=== PATIENT | female | born 1955 | race Asian ===

== ENCOUNTER 2025-07-28 16:09 | Inpatient (IN) | payer MEDICARE ==
[2025-07-28] VITALS (9 sets, daily range): BP systolic 69–109; BP diastolic 55–80; TEMP 97.6; O2SAT 97–99
[~2025-07-28] VITALS: Ht 157.5 cm; Wt 59.0 kg
[2025-07-28] MEDS: IV NORMAL SALINE 1000 ML BAG IV ONE ×2 (16:41→20:05)
[2025-07-28] MEDS ORDERED: diphenhydrAMINE 50 MG/1 ML VIAL ONE (16:43)
[2025-07-28] MEDS ORDERED: DEXAMETHASONE SOD PHOSPHATE 10 MG INJ ONE (16:43)
[2025-07-28] MEDS ORDERED: LORAZEPAM 2 MG/1 ML VIAL ONE (16:43)
[2025-07-28 16:44] LABS: PLATELET COUNT (AUTO) 296 K/uL (179-408); RED BLOOD CELL COUNT(AUTO) 4.93 MIL/uL (3.63-4.92); RED CELL DISTRIBUTION WIDTH 13.8 % (12.3-17.7); WHITE BLOOD COUNT (AUTO) 13.0 K/uL (3.8-11.8)
[2025-07-28] MEDS: diphenhydrAMINE 50 MG/1 ML VIAL IV ONE (16:45)
[2025-07-28] MEDS: DEXAMETHASONE SOD PHOSPHATE 4 MG INJ IV ONE (16:45)
[2025-07-28] MEDS ORDERED: LORAZEPAM 2 MG/1 ML VIAL IV ONE (16:45)
[2025-07-28] MEDS ORDERED: METOCLOPRAMIDE HCL 10 MG/2 ML VIAL ONE (16:49)
[2025-07-28] MEDS: METOCLOPRAMIDE HCL 10 MG/2 ML VIAL IV ONE (16:50)
[2025-07-28 16:53] LABS: CREATININE 0.9 mg/dL (0.6-1.3); SODIUM SERUM 139 mmol/L (136-145); UREA NITROGEN, BLOOD 24 mg/dL (7-18)
[2025-07-28 16:55] LABS: ABG BASE EXCESS -4.8 mmol/L (-2.0-3.0); ABG HCO3 17.6 mmol/L (21.0-28.0); ABG PCO2 26.6 mmHg (32.0-45.0); ABG PH 7.438 (7.350-7.450); ABG PO2 73.7 mmHg (83.0-108.0); ABG SITE LEFT RADIAL; ABG TOTAL HEMOGLOBIN 15.3 G/dL (12.0-16.0); AaDO2 95.5 mmHg; FIO2 21.0 %; FLOW, BLOOD GAS 0.00 L/min (0.00-30.00)
[2025-07-28 16:59] LABS: ASPARTATE AMINOTRANSFERASE 9 U/L (15-37); TOTAL PROTEIN, SERUM 9.1 g/dL (6.4-8.2)
[2025-07-28] MEDS ORDERED: PROPOFOL 100 ML ONE (17:02)
[2025-07-28] MEDS: ETOMIDATE 20 MG/10 ML VIAL IV ONE ×2 (17:03→17:23)
[2025-07-28 17:08] LABS: LACTIC ACID 4.2 mmol/L (0.4-2.0)
[2025-07-28] MEDS: SUCCINYLCHOLINE CHLORIDE 200 MG/10 ML VIAL IV ONE (17:35)
[2025-07-28] MEDS: PROPOFOL 200 MG/20 ML BOTTLE IV ONE (18:00)
[2025-07-28] MEDS: PROPOFOL 100 ML IV PRN (18:10)
[2025-07-28] MEDS ORDERED: REMEDY ESSENTIAL ZINC PASTE 113 GM TP PRN (18:15)
[2025-07-28] MEDS ORDERED: ONDANSETRON 4 MG/2 ML VIAL IV PRN (18:15)
[2025-07-28] MEDS ORDERED: MAGNESIUM HYDROXIDE 30 ML LIQUID UDC PO PRN (18:15)
[2025-07-28] MEDS ORDERED: NATE60TA4 PO (18:21)
[2025-07-28] MEDS ORDERED: LOSA50TA39 PO (18:21)
[2025-07-28] MEDS ORDERED: SITA100T PO (18:21)
[2025-07-28] MEDS ORDERED: AMLO-212 PO (18:21)
[2025-07-28] MEDS ORDERED: ATOR10TA PO (18:21)
[2025-07-28] MEDS ORDERED: BENZ-38 PO (18:21)
[2025-07-28] MEDS ORDERED: SUCCINYLCHOLINE CHLORIDE 200 MG/10 ML VIAL ONE (18:30)
[2025-07-28] MEDS ORDERED: ROCURONIUM BROMIDE 100 MG in IV NORMAL SALINE 90 ML IV PRN (18:30)
[2025-07-28] MEDS ORDERED: ROCURONIUM BROMIDE 50 MG/5 ML VIAL ONE ×2 (18:30)
[2025-07-28] MEDS ORDERED: ETOMIDATE 20 MG/10 ML VIAL ONE (18:30)
[2025-07-28] MEDS ORDERED: VECURONIUM BROMIDE 10 MG VIAL ONE (18:30)
[2025-07-28] MEDS ORDERED: ACETAMINOPHEN 650 MG SUPP.RECT RC ONE (18:34)
[2025-07-28] MEDS: ACETAMINOPHEN 650 MG SUPP.RECT RC ONE (18:44)
[2025-07-28] MEDS: VANCOMYCIN IV 1,000 MG in IV DEXTROSE 5% 250 ML IV ONE (18:45)
[2025-07-28] MEDS ORDERED: LABETALOL HCL 100 MG/20 ML VIAL ONE (18:46)
[2025-07-28] MEDS: LABETALOL HCL 100 MG/20 ML VIAL IV ONE (18:49)
[2025-07-28] MEDS ORDERED: CEFTRIAXONE /D5W 50ML IVPB **ER PYXIS IV ONE (18:50)
[2025-07-28 19:06] LABS: *BILIRUBIN,URIN NEGATIVE (NEGATIVE); *BLOOD, URINE 3+ (NEGATIVE); *COLOR,URINE YELLOW (YELLOW); *KETONES,URINE 1+ (NEGATIVE); *PROTEIN,URINE NEGATIVE (NEGATIVE); *UROBILINOGEN,URINE 0.2 E.U./dl (NORMAL); LEUKOCYTE ESTERASE ,URINE NEGATIVE (NEGATIVE); NITRITE, URINE NEGATIVE (NEGATIVE)
[2025-07-28 19:08] LABS: UGLUCOSE 3+ (NEGATIVE)
[2025-07-28 19:20] LABS: SQUAMOUS EPITHELIAL CELL,UR FEW /HPF (NONE SEEN)
[2025-07-28 19:22] LABS: *CLARITY,URINE SLIGHTLY HAZY (CLEAR)
[2025-07-28] MEDS ORDERED: VANCOMYCIN IV 0 ML ONE (20:35)
[2025-07-28] MEDS ORDERED: AZITHROMYCIN 500MG/ D5W 250ML IVPB **ER PYXIS ONLY IV ONE (20:35)
[2025-07-28] MEDS: AZITHROMYCIN IV 500 MG in IV DEXTROSE 5% 250 ML IV SCH (20:40)
[2025-07-28] MEDS ORDERED: NOREPINEPHRINE 8MG/NS 250ML 250 ML IV ONE (21:02)
[2025-07-28 21:04] LABS: ABG BASE EXCESS -9.9 mmol/L (-2.0-3.0); ABG HCO3 15.9 mmol/L (21.0-28.0); ABG PCO2 34.3 mmHg (32.0-45.0); ABG PH 7.283 (7.350-7.450); ABG PO2 167.0 mmHg (83.0-108.0); ABG SITE RIGHT HEEL; ABG TOTAL HEMOGLOBIN 11.4 G/dL (12.0-16.0); AaDO2 98.9 mmHg; FIO2 100.0 %; PEEP,BG 5.0 cmH20; SET RATE, BG 20.0; VT, ABG 400 mL
[2025-07-28] MEDS: NOREPINEPHRINE 8MG/NS 250ML 250 ML IV PRN (21:31)
[2025-07-28] MEDS: IV NS 1000 ML 1,000 ML IV PRN (22:24)
[2025-07-28] MEDS ORDERED: CEFEPIME HCL 1 G VIAL ONE (23:08)
[2025-07-28] MEDS ORDERED: ACYCLOVIR 500 MG VIAL IV ONE (23:08)
[2025-07-28] MEDS: ENOXAPARIN SODIUM 40 MG/0.4 ML DISP.SYRIN SQ SCH (23:41)
[2025-07-28] MEDS: ACYCLOVIR IV 500 MG in IV DEXTROSE 5% 100 ML IV ONE (23:43)
[2025-07-28] MEDS: DEXAMETHASONE SOD PHOSPHATE 4 MG INJ IV SCH (23:58)
[2025-07-29] VITALS (95 sets, daily range): BP systolic 95–136; BP diastolic 57–87; TEMP 97.8–98.2; O2SAT 96–100
[2025-07-29] MEDS: CEFEPIME (MAXEPIME) 1 G in IV DEXTROSE 5% 50 ML IV SCH ×2 (00:44→08:42)
[2025-07-29] MEDS: PROPOFOL 100 ML IV PRN (03:17)
[2025-07-29 05:05] LABS: RED CELL DISTRIBUTION WIDTH 13.9 % (12.3-17.7)
[2025-07-29 05:06] LABS: PLATELET COUNT (AUTO) 271 K/uL (179-408); RED BLOOD CELL COUNT(AUTO) 4.39 MIL/uL (3.63-4.92)
[2025-07-29 05:21] LABS: WHITE BLOOD COUNT (AUTO) 37.4 K/uL (3.8-11.8)
[2025-07-29 05:23] LABS: CREATININE 0.6 mg/dL (0.6-1.3); UREA NITROGEN, BLOOD 16 mg/dL (7-18)
[2025-07-29 05:29] LABS: SODIUM SERUM 143 mmol/L (136-145)
[2025-07-29] MEDS ORDERED: CEFEPIME (MAXEPIME) 1 G in IV DEXTROSE 5% 50 ML IV SCH ×2 (06:00→08:30)
[2025-07-29 06:10] LABS: BAND % (MANUAL) 12 % (0-10); LYMPHOCYTES % (MANUAL) 4 % (20-40); MONOCYTES % (MANUAL) 6 % (2-10); MYELOCYTES % 1 % (0-0); NEUTROPHILS % (MANUAL) 77 % (42-75); PLATELET ESTIMATE ADEQUATE
[2025-07-29] MEDS: NOREPINEPHRINE 8MG/NS 250ML 250 ML IV PRN (06:27)
[2025-07-29] MEDS ORDERED: ACYCLOVIR IV 500 MG in IV DEXTROSE 5% 100 ML IV SCH (07:30)
[2025-07-29] MEDS: POTASSIUM CHLORIDE 50 ML IV SCH (08:42)
[2025-07-29] MEDS: PANTOPRAZOLE SODIUM 40 MG VIAL IV SCH (09:20)
[2025-07-29] MEDS: ACYCLOVIR IV 500 MG in IV DEXTROSE 5% 100 ML IV SCH (09:21)
[2025-07-29] MEDS ORDERED: DEXTROSE 50% 50 ML DISP.SYRIN IV PRN (09:45)
[2025-07-29] MEDS ORDERED: IV NORMAL SALINE 250 ML IV ONE (11:24)
[2025-07-29] MEDS ORDERED: IOHEXOL 300MG/ML 100 ML INFUS..BTL ONE (11:24)
[2025-07-29] MEDS ORDERED: SWABABLE VALVE TRANSFER SET EA MC ONE (11:24)
[2025-07-29] MEDS: BLOOD SUGAR DIAGNOSTIC 1 EACH STRIP VI SCH (11:42)
[2025-07-29] MEDS: INSULIN REGULAR, HUMAN 1000 UNIT/10 ML VIAL SQ PRN (11:54)
[2025-07-29] MEDS: SODIUM BICARBONATE 8.4% 50 MEQ in IV 1/2NS 1000 ML 1,000 ML IV PRN (11:56)
[2025-07-29] MEDS ORDERED: AZITHROMYCIN IV 500 MG in IV DEXTROSE 5% 250 ML IV SCH (20:00)
[2025-07-30] VITALS (81 sets, daily range): BP systolic 96–133; BP diastolic 61–81; TEMP 97.9–98.2; O2SAT 97–99
[2025-07-30 03:55] LABS: PLATELET COUNT (AUTO) 213 K/uL (179-408); RED BLOOD CELL COUNT(AUTO) 3.98 MIL/uL (3.63-4.92); RED CELL DISTRIBUTION WIDTH 14.1 % (12.3-17.7)
[2025-07-30 04:10] LABS: WHITE BLOOD COUNT (AUTO) 38.8 K/uL (3.8-11.8)
[2025-07-30 04:11] LABS: CREATININE 0.6 mg/dL (0.6-1.3); SODIUM SERUM 146 mmol/L (136-145); TOTAL PROTEIN, SERUM 6.6 g/dL (6.4-8.2); UREA NITROGEN, BLOOD 19 mg/dL (7-18)
[2025-07-30 04:40] LABS: BAND % (MANUAL) 8 % (0-10); LYMPHOCYTES % (MANUAL) 5 % (20-40); METAMYELOCYTES % 1 % (0-1); MONOCYTES % (MANUAL) 5 % (2-10); NEUTROPHILS % (MANUAL) 81 % (42-75); PLATELET ESTIMATE ADEQUATE
[2025-07-30 05:45] LABS: ASPARTATE AMINOTRANSFERASE 49 U/L (15-37)
[2025-07-30] MEDS ORDERED: SODIUM BICARBONATE 8.4% 50 MEQ in IV 1/2NS 1000 ML 1,000 ML IV PRN (07:45)
[2025-07-30] MEDS: SODIUM BICARBONATE 8.4% 100 MEQ in IV 1/2NS 1000 ML 1,000 ML IV PRN (08:23)
[2025-07-30] MEDS: MIDAZOLAM HCL 50 MG in IV NORMAL SALINE 40 ML IV PRN (11:29)
[2025-07-30 20:18] LABS: CREATININE 0.6 mg/dL (0.6-1.3); SODIUM SERUM 148 mmol/L (136-145); UREA NITROGEN, BLOOD 21 mg/dL (7-18)
[2025-07-31] VITALS (81 sets, daily range): BP systolic 98–269; BP diastolic 62–87; TEMP 97.2–98.6; O2SAT 96–100
[2025-07-31 05:27] LABS: PLATELET COUNT (AUTO) 171 K/uL (179-408); RED BLOOD CELL COUNT(AUTO) 4.19 MIL/uL (3.63-4.92); RED CELL DISTRIBUTION WIDTH 14.5 % (12.3-17.7)
[2025-07-31 05:38] LABS: ABG BASE EXCESS -13.7 mmol/L (-2.0-3.0); ABG HCO3 12.2 mmol/L (21.0-28.0); ABG PCO2 28.9 mmHg (32.0-45.0); ABG PH 7.243 (7.350-7.450); ABG PO2 103.1 mmHg (83.0-108.0); ABG SITE RIGHT RADIAL; ABG TOTAL HEMOGLOBIN 12.2 G/dL (12.0-16.0); AaDO2 96.9 mmHg; FIO2 30.0 %; PEEP,BG 5.0 cmH20; SET RATE, BG 20.0; VT, ABG 400 mL
[2025-07-31 05:38] LABS: ABG BASE EXCESS -16.6 mmol/L (-2.0-3.0); ABG HCO3 10.9 mmol/L (21.0-28.0); ABG PCO2 31.4 mmHg (32.0-45.0); ABG PH 7.157 (7.350-7.450); ABG PO2 151.3 mmHg (83.0-108.0); ABG SITE LEFT RADIAL; ABG TOTAL HEMOGLOBIN 13.1 G/dL (12.0-16.0); AaDO2 98.4 mmHg; FIO2 60.0 %; PEEP,BG 5.0 cmH20; SET RATE, BG 20.0; VT, ABG 400 mL
[2025-07-31 05:40] LABS: ASPARTATE AMINOTRANSFERASE 28 U/L (15-37); CREATININE 0.7 mg/dL (0.6-1.3); SODIUM SERUM 149 mmol/L (136-145); TOTAL PROTEIN, SERUM 6.7 g/dL (6.4-8.2); UREA NITROGEN, BLOOD 23 mg/dL (7-18); WHITE BLOOD COUNT (AUTO) 34.4 K/uL (3.8-11.8)
[2025-07-31 05:57] LABS: BAND % (MANUAL) 5 % (0-10); LYMPHOCYTES % (MANUAL) 7 % (20-40); MONOCYTES % (MANUAL) 3 % (2-10); NEUTROPHILS % (MANUAL) 85 % (42-75); PLATELET ESTIMATE SLIGHT DECREASED
[2025-07-31 06:17] LABS: ABG SITE RIGHT RADIAL; FLOW, BLOOD GAS 2.00 L/min (0.00-30.00)
[2025-07-31 06:21] LABS: ABG BASE EXCESS -10.2 mmol/L (-2.0-3.0); ABG HCO3 14.6 mmol/L (21.0-28.0); ABG PCO2 29.2 mmHg (32.0-45.0); ABG PH 7.317 (7.350-7.450); ABG PO2 99.7 mmHg (83.0-108.0); ABG TOTAL HEMOGLOBIN 12.1 G/dL (12.0-16.0); AaDO2 97.2 mmHg; FIO2 30.0 %; PEEP,BG 5.0 cmH20; SET RATE, BG 20.0; VT, ABG 400 mL
[2025-07-31] MEDS ORDERED: SUGAMMADEX SODIUM 200 MG/2 ML VIAL IV ONE (07:30)
[2025-07-31] MEDS ORDERED: VASOPRESSIN 20 UNIT/ML VIAL ONE (07:31)
[2025-07-31] MEDS ORDERED: FENTANYL CITRATE 100 MCG/2 ML AMPUL ONE (07:31)
[2025-07-31] MEDS ORDERED: ROCURONIUM BROMIDE 50 MG/5 ML VIAL ONE (07:31)
[2025-07-31] MEDS ORDERED: SODIUM BICARBONATE 8.4% 50 MEQ/50 ML DISP.SYRIN IV ONE (07:48)
[2025-07-31] MEDS ORDERED: ALBUMIN HUMAN 5% 0 ML ONE (07:48)
[2025-07-31] MEDS ORDERED: KETOROLAC TROMETHAMINE 30 MG INJ ONE (08:15)
[2025-07-31] MEDS ORDERED: ONDANSETRON 4 MG/2 ML VIAL ONE (08:15)
[2025-07-31] MEDS ORDERED: PROPOFOL 200 MG/20 ML BOTTLE ONE (08:15)
[2025-07-31] MEDS: DEXAMETHASONE SOD PHOSPHATE 4 MG INJ IV SCH (13:21)
[2025-08-01] VITALS (58 sets, daily range): BP systolic 103–169; BP diastolic 67–111; TEMP 97.7–98.9; O2SAT 96–100
[2025-08-01 05:08] LABS: PLATELET COUNT (AUTO) 103 K/uL (179-408); RED BLOOD CELL COUNT(AUTO) 3.85 MIL/uL (3.63-4.92); RED CELL DISTRIBUTION WIDTH 13.9 % (12.3-17.7); WHITE BLOOD COUNT (AUTO) 24.2 K/uL (3.8-11.8)
[2025-08-01 05:18] LABS: CREATININE 0.6 mg/dL (0.6-1.3); SODIUM SERUM 151 mmol/L (136-145); UREA NITROGEN, BLOOD 24 mg/dL (7-18)
[2025-08-01 06:18] LABS: BAND % (MANUAL) 2 % (0-10); LYMPHOCYTES % (MANUAL) 7 % (20-40); MONOCYTES % (MANUAL) 3 % (2-10); NEUTROPHILS % (MANUAL) 88 % (42-75); PLATELET ESTIMATE DECREASED
[2025-08-01] MEDS: POTASSIUM CHLORIDE 50 ML IV SCH ×2 (07:02→08:11)
[2025-08-01] MEDS: POTASSIUM CHLORIDE 20 MEQ POWDER PACKET NG ONE (08:18)
[2025-08-01] MEDS: POTASSIUM PHOSPHATE MM 15 MMOL in IV NORMAL SALINE 250 ML IV ONE (08:22)
[2025-08-01] MEDS: IV D5W 1000ML 1,000 ML IV PRN (11:25)
[2025-08-01] MEDS ORDERED: CEFTRIAXONE /D5W 50ML IVPB **ER PYXIS IV ONE (21:31)
[2025-08-02] VITALS (24 sets, daily range): BP systolic 85–151; BP diastolic 65–94; TEMP 98–99; O2SAT 95–99
[2025-08-02 05:09] LABS: PLATELET COUNT (AUTO) 170 K/uL (179-408); RED BLOOD CELL COUNT(AUTO) 4.20 MIL/uL (3.63-4.92); RED CELL DISTRIBUTION WIDTH 13.8 % (12.3-17.7); WHITE BLOOD COUNT (AUTO) 11.9 K/uL (3.8-11.8)
[2025-08-02 05:25] LABS: ASPARTATE AMINOTRANSFERASE 9 U/L (15-37); CREATININE 0.6 mg/dL (0.6-1.3); SODIUM SERUM 142 mmol/L (136-145); TOTAL PROTEIN, SERUM 6.4 g/dL (6.4-8.2); UREA NITROGEN, BLOOD 17 mg/dL (7-18)
[2025-08-02 06:18] LABS: BAND % (MANUAL) 1 % (0-10); LYMPHOCYTES % (MANUAL) 21 % (20-40); MONOCYTES % (MANUAL) 8 % (2-10); NEUTROPHILS % (MANUAL) 70 % (42-75); PLATELET ESTIMATE DECREASED
[2025-08-02 07:05] LABS: ABG BASE EXCESS 3.2 mmol/L (-2.0-3.0); ABG HCO3 25.3 mmol/L (21.0-28.0); ABG PCO2 31.1 mmHg (32.0-45.0); ABG PH 7.529 (7.350-7.450); ABG PO2 75.2 mmHg (83.0-108.0); ABG SITE RIGHT RADIAL; ABG TOTAL HEMOGLOBIN 13.2 G/dL (12.0-16.0); AaDO2 96.5 mmHg; CPAP,BG 8 cmH20; FIO2 30.0 %; PEEP,BG 5.0 cmH20
[2025-08-02] MEDS: POTASSIUM CHLORIDE 50 ML IV SCH (08:18)
[2025-08-02] MEDS: POTASSIUM CHLORIDE 20 MEQ POWDER PACKET NG ONE (08:18)
[2025-08-02] MEDS: DEXAMETHASONE SOD PHOSPHATE 4 MG INJ IV SCH (10:02)
[2025-08-02] MEDS: POTASSIUM CHLORIDE 20 MEQ in IV D5W 1000ML 1,000 ML IV PRN (10:43)
[2025-08-02 13:09] LABS: CREATININE 0.7 mg/dL (0.6-1.3); SODIUM SERUM 141 mmol/L (136-145); UREA NITROGEN, BLOOD 18 mg/dL (7-18)
[2025-08-02] MEDS: SODIUM PHOSPHATE MM 15 MMOL in IV NORMAL SALINE 250 ML IV ONE (16:51)
[2025-08-03] VITALS (33 sets, daily range): BP systolic 124–177; BP diastolic 71–101; TEMP 98–99.3; O2SAT 92–99
[2025-08-03 05:08] LABS: PLATELET COUNT (AUTO) 172 K/uL (179-408); RED BLOOD CELL COUNT(AUTO) 3.92 MIL/uL (3.63-4.92); RED CELL DISTRIBUTION WIDTH 13.8 % (12.3-17.7); WHITE BLOOD COUNT (AUTO) 10.3 K/uL (3.8-11.8)
[2025-08-03 05:22] LABS: CREATININE 0.4 mg/dL (0.6-1.3); SODIUM SERUM 141 mmol/L (136-145); UREA NITROGEN, BLOOD 20 mg/dL (7-18)
[2025-08-03 05:44] LABS: BAND % (MANUAL) 1 % (0-10); EOSINOPHILS % (MANUAL) 2 % (0-8); LYMPHOCYTES % (MANUAL) 27 % (20-40); MONOCYTES % (MANUAL) 9 % (2-10); MYELOCYTES % 1 % (0-0); NEUTROPHILS % (MANUAL) 60 % (42-75); PLATELET ESTIMATE SLIGHT DECREASED
[2025-08-03 07:21] LABS: ABG BASE EXCESS 6.4 mmol/L (-2.0-3.0); ABG HCO3 29.1 mmol/L (21.0-28.0); ABG PCO2 35.2 mmHg (32.0-45.0); ABG PH 7.535 (7.350-7.450); ABG PO2 77.7 mmHg (83.0-108.0); ABG SITE RIGHT RADIAL; ABG TOTAL HEMOGLOBIN 13.1 G/dL (12.0-16.0); AaDO2 96.8 mmHg; FIO2 30.0 %; PEEP,BG 5.0 cmH20; SET RATE, BG 0.0; VT, ABG 406 mL
[2025-08-03] MEDS: POTASSIUM CHLORIDE 20 MEQ POWDER PACKET NG ONE (08:02)
[2025-08-03] MEDS: ACETAMINOPHEN 325 MG TABLET PO PRN (08:05)
[2025-08-03] MEDS ORDERED: DC PROPOFOL ONCE EXTUBATED XX PRN (09:30)
[2025-08-03] MEDS: ACETYLCYSTEINE 20% 800 MG/4 ML VIAL NEB SCH (17:02)
[2025-08-03] MEDS: ALBUTEROL SULFATE 2.5 MG/3 ML NEBU NEB PRN (17:03)
[2025-08-04] VITALS (29 sets, daily range): BP systolic 117–146; BP diastolic 65–106; TEMP 98.2–99.7; O2SAT 94–100
[2025-08-04 05:09] LABS: PLATELET COUNT (AUTO) 224 K/uL (179-408); RED BLOOD CELL COUNT(AUTO) 4.48 MIL/uL (3.63-4.92); RED CELL DISTRIBUTION WIDTH 13.5 % (12.3-17.7); WHITE BLOOD COUNT (AUTO) 10.7 K/uL (3.8-11.8)
[2025-08-04 05:21] LABS: CREATININE 0.3 mg/dL (0.6-1.3); SODIUM SERUM 139 mmol/L (136-145); UREA NITROGEN, BLOOD 15 mg/dL (7-18)
[2025-08-04 05:51] LABS: EOSINOPHILS % (MANUAL) 1 % (0-8); LYMPHOCYTES % (MANUAL) 21 % (20-40); METAMYELOCYTES % 1 % (0-1); MONOCYTES % (MANUAL) 7 % (2-10); NEUTROPHILS % (MANUAL) 70 % (42-75); PLATELET ESTIMATE ADEQUATE
[2025-08-05] VITALS (16 sets, daily range): BP systolic 96–151; BP diastolic 60–90; TEMP 97.7–98.9; O2SAT 97–100
[2025-08-05 05:57] LABS: ABG BASE EXCESS 1.2 mmol/L (-2.0-3.0); ABG HCO3 23.5 mmol/L (21.0-28.0); ABG PCO2 30.8 mmHg (32.0-45.0); ABG PH 7.501 (7.350-7.450); ABG PO2 93.1 mmHg (83.0-108.0); ABG SITE RIGHT RADIAL; ABG TOTAL HEMOGLOBIN 13.3 G/dL (12.0-16.0); AaDO2 97.8 mmHg; FIO2 28.0 %; FLOW, BLOOD GAS 2.00 L/min (0.00-30.00)
[2025-08-05 07:17] LABS: PLATELET COUNT (AUTO) 296 K/uL (179-408); RED BLOOD CELL COUNT(AUTO) 4.29 MIL/uL (3.63-4.92); RED CELL DISTRIBUTION WIDTH 13.4 % (12.3-17.7); WHITE BLOOD COUNT (AUTO) 11.2 K/uL (3.8-11.8)
[2025-08-05 07:28] LABS: CREATININE 0.4 mg/dL (0.6-1.3); SODIUM SERUM 134 mmol/L (136-145); UREA NITROGEN, BLOOD 18 mg/dL (7-18)
[2025-08-05 09:27] LABS: EOSINOPHILS % (MANUAL) 3 % (0-8); LYMPHOCYTES % (MANUAL) 17 % (20-40); MONOCYTES % (MANUAL) 13 % (2-10); NEUTROPHILS % (MANUAL) 67 % (42-75); PLATELET ESTIMATE ADEQUATE
[2025-08-05] MEDS: INSULIN GLARGINE,HUM 300 UNITS/3 ML CARTRIDGE SQ SCH (12:11)
[2025-08-05] MEDS: BLOOD SUGAR DIAGNOSTIC 1 EACH STRIP VI SCH (20:29)
[2025-08-06 04:32] VITALS: BP 137/77; TEMP 98.7; O2SAT 100
[2025-08-06] MEDS: PANTOPRAZOLE SODIUM 40 MG TABLET.DR PO SCH (06:45)
[2025-08-06 07:20] VITALS: O2SAT 97
[2025-08-06 07:35] VITALS: O2SAT 98
[2025-08-06 07:50] VITALS: BP 139/78; TEMP 98.5; O2SAT 99
[2025-08-06 08:58] LABS: PLATELET COUNT (AUTO) 379 K/uL (179-408); RED BLOOD CELL COUNT(AUTO) 4.56 MIL/uL (3.63-4.92); RED CELL DISTRIBUTION WIDTH 13.4 % (12.3-17.7); WHITE BLOOD COUNT (AUTO) 12.3 K/uL (3.8-11.8)
[2025-08-06 09:13] LABS: CREATININE 0.4 mg/dL (0.6-1.3); SODIUM SERUM 137 mmol/L (136-145); UREA NITROGEN, BLOOD 32 mg/dL (7-18)
[2025-08-06] MEDS ORDERED: METF-495 PO (10:19)
[2025-08-06] MEDS ORDERED: CEFT1VIA15 IV (10:19)
[2025-08-06 11:33] VITALS: BP 126/72; TEMP 97.9; O2SAT 99
[2025-08-07] MEDS ORDERED: DEXAMETHASONE SOD PHOSPHATE 4 MG INJ IV SCH (09:00)
== END 2025-08-06 14:15 | DRG 853 ==
LOC: ER 16:09 → CCU 21:10 → TELE3 08-05 03:36
PROVIDERS: ADMIT Student in an Organized Health Care Education/Training Program; ATTEND Student in an Organized Health Care Education/Training Program
PROC: 5A1955Z Respiratory Ventilation, Greater than 96 Consecutive Hours (ICD-10-PCS; principal; 2025-07-28)
PROC: 0BH17EZ Insertion of Endotracheal Airway into Trachea, Via Natural or Artificial Opening (ICD-10-PCS; 2025-07-28)
PROC: 009U3ZX Drainage of Spinal Canal, Percutaneous Approach, Diagnostic (ICD-10-PCS; 2025-07-28)
PROC: 02HV33Z Insertion of Infusion Device into Superior Vena Cava, Percutaneous Approach (ICD-10-PCS; 2025-07-29)
PROC: 0T778DZ Dilation of Left Ureter with Intraluminal Device, Via Natural or Artificial Opening Endoscopic (ICD-10-PCS; 2025-07-31)
DX: A41.51 Sepsis due to Escherichia coli [E. coli] (principal); G93.41 Metabolic encephalopathy; J69.0 Pneumonitis due to inhalation of food and vomit; R65.21 Severe sepsis with septic shock; J15.69 Pneumonia due to other Gram-negative bacteria; J96.01 Acute respiratory failure with hypoxia; N13.6 Pyonephrosis; E87.20 Acidosis, unspecified; E44.0 Moderate protein-calorie malnutrition; J81.1 Chronic pulmonary edema; B96.20 Unspecified Escherichia coli [E. coli] as the cause of diseases classified elsewhere; R91.1 Solitary pulmonary nodule; E78.5 Hyperlipidemia, unspecified; K57.30 Diverticulosis of large intestine without perforation or abscess without bleeding; E87.6 Hypokalemia; E11.65 Type 2 diabetes mellitus with hyperglycemia; E83.51 Hypocalcemia; K76.0 Fatty (change of) liver, not elsewhere classified; J98.2 Interstitial emphysema; E86.0 Dehydration; M50.31 Other cervical disc degeneration, high cervical region; I10 Essential (primary) hypertension; T88.4XXA Failed or difficult intubation, initial encounter; Z79.84 Long term (current) use of oral hypoglycemic drugs; Z88.0 Allergy status to penicillin
CPT/HCPCS: 36415; 36600; 70030-TC; 70450; 71045; 71250; 72125; 74018; 82803; 83605; 83690; 83735; 84100; 84443; 84478; 84484; 85025; 85730; 87040; 87070; 87077; 87086; 93307; 94002; 94003; 94640; 94664; 94760; 99082-TC; A4606; A4663; C1713; C1758; G0378; J0133; J0330; J0456; J0692; J0696; J1100; J1200; J1650; J1815; J1885; J2060; J2250; J2405; J2470; J2765; J3010; J3373; J3480; J3490; J7040; J7070; P9045; Q9967